=== PATIENT | female | born 1965 | race Hispanic/Latino ===

== ENCOUNTER 2019-05-24 23:32 | Emergency (ER) | payer OTHER ==
[~2019-05-24] VITALS: Ht 167.6 cm; Wt 68.0 kg
--- NOTE | 2019-05-25 01:09 | Diagnostic Imaging Report ---
Right shoulder radiographs 3 views HISTORY: Fall, trauma, pain COMPARISON: None available. FINDINGS: Bones: Focal cortical lucency in the inferior aspect of the mid/peripheral right clavicle with minimal focal cortical inferior displacement at the site of this lucency. This finding is at the expected location of the conoid ligament / tubercle. Osseous alignment is within normal limits. Joints: The joint spaces are well-maintained. Soft tissues: The soft tissues appear unremarkable. IMPRESSION: Possible conoid tubercle avulsion fracture, however favor enthesopathic changes. Recommend follow-up clavicle radiographs in 6 weeks. Signed by: Darek Hansen DO on 05/25/2019 1:06 AM
--- NOTE | 2019-05-25 01:09 | Diagnostic Imaging Report ---
Right forearm radiographs 2 views, right elbow radiographs 3 views HISTORY: Fall, trauma, pain. COMPARISON: None available. FINDINGS: Bones: No acute displaced fracture. Osseous alignment is within normal limits. Joints: The joint spaces are well-maintained. Soft tissues: The soft tissues appear unremarkable. IMPRESSION: No acute radiographic osseous abnormality. Enthesopathic changes in the elbow Signed by: Darek Hansen DO on 05/25/2019 1:05 AM
[2019-05-25] MEDS ORDERED: NAPROXEN250 MG PO (01:24)
[2019-05-25] MEDS ORDERED: HYDROCODONE/APAP 5MG-325MG TAB PO ONE (01:30)
[2019-05-25] MEDS ORDERED: ULTRAM50 MG PO (01:31)
[2019-05-25] MEDS ORDERED: HYDROCODONE/APAP 5MG-325MG TAB ONE (01:34)
== END 2019-05-25 01:36 | disposition home or self-care (01) ==
LOC: FSED 23:32
DX: S42.024A Nondisplaced fracture of shaft of right clavicle, initial encounter for closed fracture (principal); S40.011A Contusion of right shoulder, initial encounter; S40.021A Contusion of right upper arm, initial encounter; S50.01XA Contusion of right elbow, initial encounter; W10.8XXA Fall (on) (from) other stairs and steps, initial encounter; Y99.0 Civilian activity done for income or pay; I10 Essential (primary) hypertension
CPT/HCPCS: 99283